=== PATIENT | female | born 1990 | race Caucasian/White ===

== ENCOUNTER 2020-06-23 00:05 | Emergency (ER) | payer MEDICAID ==
[~2020-06-23] VITALS: Ht 170.2 cm; Wt 47.0 kg
[2020-06-23 01:29] LABS: CLARITY,URINE CLEAR (Clear); COLOR,URINE YELLOW (Yellow); GLUCOSE, URINE NEGATIVE (Neg); KETONES,URINE NEGATIVE (Neg); LEUKOCYTE ESTERASE ,URINE TRACE (Neg); NITRITES, URINE NEGATIVE (Neg); OCCULT BLOOD,URINE SMALL (Neg); PROTEIN,URINE NEGATIVE (Neg); UROBILINOGEN,URINE 0.2 E.U/dL (0.2-1.0)
[2020-06-23 01:30] LABS: URINE HCG NEGATIVE (NEG)
[2020-06-23 01:43] LABS: UA COLLECTION TYPE CLN CATCH MIDSTREAM
[2020-06-23 01:44] LABS: BACTERIA,URINE NONE SEEN /HPF (Neg); RBC,URINE 0-2 /HPF (0-2); SQUAMOUS EPITHELIAL CELL,UR FEW /LPF (FEW); WBC,URINE 0-4 /HPF (0-4)
--- NOTE | 2020-06-23 03:50 | NUR ---
DR CONWAY IS PLACING PT ON 179.
[2020-06-23] MEDS ORDERED: MIDAZolam 5mg/ml 2ml vial IM ONE (04:00)
--- NOTE | 2020-06-23 04:00 | NUR ---
PT BECAME VERY AGITATED WHEN MD NOTIFIED PT OF 1798. MD ORDERED IM VERSED IF NEEDED. PT EVENTUALY CALMED DOWN. NO NEED TO ADMIN MEDICATION.
[2020-06-23 04:07] LABS: URINE AMPHETAMINE SCREEN NEGATIVE (Neg); URINE BARBITUATE SCREEN NEGATIVE (Neg); URINE BENZODIAZEPINES SCREEN NEGATIVE (Neg); URINE CANNABINOID SCREEN POSITIVE (Neg); URINE COCAINE SCREEN NEGATIVE (Neg); URINE METHADONE SCREEN NEGATIVE (Neg); URINE OPIATE SCREEN NEGATIVE (Neg); URINE PHENCYCLIDINE SCREEN NEGATIVE (Neg)
[2020-06-23] MEDS ORDERED: NO HOME MEDS (04:30)
[2020-06-23 04:37] LABS: BASOPHILS # (AUTO) 0.1 X10'3 (0-0.2); BASOPHILS % (AUTO) 0.6 % (0-1); EOSINOPHILS # (AUTO) 0.1 X10'3 (0-0.9); HEMATOCRIT 45.6 % (35.0-45.0); HEMOGLOBIN 15.6 g/dl (12.0-16.0); LYMPHOCYTES # (AUTO) 3.2 X10'3 (1.1-4.8); LYMPHOCYTES % (AUTO) 37.9 % (21-51); MEAN CORPUSCULAR HEMOGLOBIN 35.8 PG (27.0-31.0); MEAN CORPUSCULAR HGB CONC 34.1 g/dL (33.0-36.5); MEAN CORPUSCULAR VOLUME 104.9 FL (78-98); MEAN PLATELET VOLUME 7.3 FL (7.4-10.4); MONOCYTES # (AUTO) 0.9 X10'3 (0-0.9); MONOCYTES % (AUTO) 11.2 % (2-12); NEUTROPHILS # (AUTO) 4.1 X10'3 (1.8-7.7); NEUTROPHILS % (AUTO) 49.3 % (42-75); PLATELET COUNT 280 X10'3 (140-440); RED BLOOD COUNT 4.35 X10'6 (4.20-5.60); RED CELL DISTRIBUTION WIDTH 12.8 % (11.5-14.5); WHITE BLOOD COUNT 8.4 X10'3 (4.5-11.0)
[2020-06-23 04:49] LABS: ALANINE AMINOTRANSFERASE 18 U/L (12-78); ALBUMIN 4.1 G/DL (3.4-5.0); ALBUMIN/GLOBULIN RATIO 1.2 (1.1-1.5); ALKALINE PHOSPHATASE 89 IU/L (46-116); ANION GAP 11 (8-16); ASPARTATE AMINO TRANSFERASE 18 U/L (10-37); BILIRUBIN,TOTAL 0.3 MG/DL (0.1-1.0); BLOOD UREA NITROGEN 8 MG/DL (7-18); BUN/CREATININE RATIO 12.9 (6.6-38.0); CALCIUM 8.6 MG/DL (8.5-10.1); CHLORIDE 107 MMOL/L (99-107); CREATININE 0.62 MG/DL (0.40-0.90); GLUCOSE 102 MG/DL (70-104); POTASSIUM 3.6 MMOL/L (3.5-5.1); SODIUM 143 MMOL/L (135-145); TOTAL CARBON DIOXIDE 24.6 MMOL/L (24-32); TOTAL PROTEIN 7.5 G/DL (6.4-8.2); eGFR > 90 ML/MIN
[2020-06-23 04:58] LABS: ETHANOL 0.181 GM/DL (0.0-0.010)
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
--- NOTE | 2020-06-23 08:19 | NUR ---
TC FROM PATIENT'S MOTHER. PATIENT LIVES WITH HER MOTHER. INFORMED THAT MENTAL HEALTH EVAL WILL BE DONE THIS MORNING BY [facility]. MOTHER IS AVAILABLE TO SPEAK WITH MENTAL HEALTH WORKER, IF MORE INFORMATION IS NEEDED.
--- NOTE | 2020-06-23 09:12 | NUR ---
PT OFFERED BREAKFAST TRAY AND IS REFUSING AT THIS TIME.
--- NOTE | 2020-06-23 09:24 | NUR ---
REPORT TO NOE GONZALEZ AND TAKEN TO ER OVERFLOW FOR MH HOLD.
[2020-06-23 10:44] VITALS: BP 125/91
== END 2020-06-23 13:06 | disposition home or self-care (01) ==
LOC: ER 00:06
DX: F41.9 Anxiety disorder, unspecified (principal); F10.10 Alcohol abuse, uncomplicated; H55.00 Unspecified nystagmus; F12.90 Cannabis use, unspecified, uncomplicated; Y90.9 Presence of alcohol in blood, level not specified
CPT/HCPCS: 36415; 80053; 80305; 80320; 81001; 81025; 84443; 85025; 87088; 99283

== ENCOUNTER 2021-02-28 20:18 | Emergency (ER) | payer MEDICAID ==
[~2021-02-28] VITALS: Ht 165.1 cm; Wt 54.0 kg
[~2021-02-28 20:18] MED LIST: NO HOME MEDS
[2021-02-28 21:07] LABS: URINE HCG NEGATIVE (NEG)
[2021-02-28 21:07] LABS: BASOPHILS # (AUTO) 0.1 X10'3 (0-0.2); BASOPHILS % (AUTO) 0.8 % (0-1); EOSINOPHILS # (AUTO) 0.1 X10'3 (0-0.9); EOSINOPHILS % (AUTO) 1.2 % (0-6); HEMATOCRIT 45.2 % (35.0-45.0); HEMOGLOBIN 15.1 g/dl (12.0-16.0); LYMPHOCYTES # (AUTO) 3.8 X10'3 (1.1-4.8); LYMPHOCYTES % (AUTO) 34.5 % (21-51); MEAN CORPUSCULAR HEMOGLOBIN 33.6 PG (27.0-31.0); MEAN CORPUSCULAR HGB CONC 33.4 g/dL (33.0-36.5); MEAN CORPUSCULAR VOLUME 100.6 FL (78-98); MEAN PLATELET VOLUME 8.1 FL (7.4-10.4); MONOCYTES % (AUTO) 9.3 % (2-12); NEUTROPHILS # (AUTO) 5.9 X10'3 (1.8-7.7); NEUTROPHILS % (AUTO) 54.2 % (42-75); PLATELET COUNT 376 X10'3 (140-440); RED BLOOD COUNT 4.49 X10'6 (4.20-5.60); RED CELL DISTRIBUTION WIDTH 13.2 % (11.5-14.5)
--- NOTE | 2021-02-28 21:12 | NUR ---
Pt urinated all over the floor
[2021-02-28 21:24] LABS: ALANINE AMINOTRANSFERASE 20 U/L (12-78); ALBUMIN 4.1 G/DL (3.4-5.0); ALBUMIN/GLOBULIN RATIO 1.1 (1.1-1.5); ALKALINE PHOSPHATASE 95 IU/L (46-116); ANION GAP 19 (8-16); ASPARTATE AMINO TRANSFERASE 26 U/L (10-37); BILIRUBIN,TOTAL 0.3 MG/DL (0.1-1.0); BLOOD UREA NITROGEN 10 MG/DL (7-18); BUN/CREATININE RATIO 11.1 (6.6-38.0); CALCIUM 8.6 MG/DL (8.5-10.1); CHLORIDE 106 MMOL/L (99-107); GLUCOSE 68 MG/DL (70-104); SODIUM 144 MMOL/L (135-145); TOTAL CARBON DIOXIDE 19.2 MMOL/L (24-32); TOTAL PROTEIN 7.7 G/DL (6.4-8.2); eGFR 75 ML/MIN
[2021-02-28 21:25] LABS: ETHANOL 0.328 GM/DL (0.0-0.010)
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
[2021-02-28 21:29] LABS: URINE AMPHETAMINE SCREEN NEGATIVE (Neg); URINE BARBITUATE SCREEN NEGATIVE (Neg); URINE BENZODIAZEPINES SCREEN NEGATIVE (Neg); URINE CANNABINOID SCREEN POSITIVE (Neg); URINE COCAINE SCREEN NEGATIVE (Neg); URINE METHADONE SCREEN NEGATIVE (Neg); URINE OPIATE SCREEN NEGATIVE (Neg); URINE PHENCYCLIDINE SCREEN NEGATIVE (Neg)
--- NOTE | 2021-02-28 21:32 | NUR ---
Pt [facility] Jennifer,
[2021-02-28] MEDS ORDERED: haloperidol lactate 5mg/ml inj IM ONE (21:45)
[2021-02-28] MEDS ORDERED: diphenhydrAMINE 50 mg/ml inj IM ONE (21:45)
[2021-02-28] MEDS ORDERED: LORazepam 2 mg/ml vial IM ONE (21:45)
[2021-02-28] MEDS ORDERED: LORazepam 2 mg/ml vial ONE (21:46)
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
--- NOTE | 2021-02-28 22:06 | NUR ---
PT BEGAN YELLING AND CURSING AT STAFF. PT CONTINUING TO BE AGITATED TOWARD STAFF. PT MEDICATED. DR. YANG CONSENTS AND STATES VAGINAL EXAM WILL WAIT.
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
[2021-02-28] MEDS ORDERED: potassium Cl 20 mEq SR tablet PO STA (22:58)
--- NOTE | 2021-02-28 23:15 | NUR ---
PT NOW SLEEPING, RR 16 EVEN AND UNLABORED.
--- NOTE | 2021-02-28 23:32 | NUR ---
Patient to bed 20 in the ER overflow. She was sedated. She received po KCL. She is on a monitor
--- NOTE | 2021-02-28 23:51 | NUR ---
HR 71, BP 101/63 02 sats 96% RA
[2021-03-01] MEDS ORDERED: normal saline 1000ML IV soln IVB ONE (00:10)
--- NOTE | 2021-03-01 00:31 | NUR ---
MD made aware of BP 77/46 and HR 84. IV started right AC and fluid bolus started.
--- NOTE | 2021-03-01 02:03 | NUR ---
The patient appears to be sleeping
--- NOTE | 2021-03-01 03:56 | NUR ---
The patient appears to be sleeping
[2021-03-01 05:21] VITALS: BP 99/62
--- NOTE | 2021-03-01 06:30 | NUR ---
rcvd report, pt is restlessly asleep, non labored breathing observed, no needs at this time
--- NOTE | 2021-03-01 07:30 | NUR ---
pt is sleeping on her right side, regular breathing observed, no needs at this time
--- NOTE | 2021-03-01 08:30 | NUR ---
[facility], tried to eval pt, she is wanting to eat breakfast and wake up prior to talking to him, pt is sitting up in bed, eating breakfast now
--- NOTE | 2021-03-01 09:35 | NUR ---
LOTUS Atkins is speaking to pt re treatment options, she is crying and upset.
--- NOTE | 2021-03-01 09:49 | NUR ---
pt tearful, she is to contact alcohol rehab, while here and check into there from here
--- NOTE | 2021-03-01 09:59 | NUR ---
contacted detox at [facility] , pt is on the phone with them setting up detox admit, they are saying no beds avail for 2 weeks, but likely sooner as people do not show up
--- NOTE | 2021-03-01 10:12 | NUR ---
pt half heartedly got on the phone with [facility], when they placed her on hold she left the call, did not write down any information from them
--- NOTE | 2021-03-01 10:44 | NUR ---
pt is on the phone with [facility], working through admission process, calm, no needs at this time
--- NOTE | 2021-03-01 11:34 | NUR ---
pt is supine in bed, eyes closed, regular breathing present, no needs at this time
--- NOTE | 2021-03-01 12:37 | NUR ---
pt is sitting up in bed talking with registration, calm, no needs at this time
--- NOTE | 2021-03-01 13:33 | NUR ---
pt is asleep, regular breathing observed, no needs at this time
[2021-03-01] MEDS ORDERED: albuterol 2.5 MG/3 ML nebule NEB ONE (14:40)
--- NOTE | 2021-03-01 14:42 | NUR ---
pt seen by Dr Peralta, he ordered neb treatment, sent page to RT
--- NOTE | 2021-03-01 15:42 | NUR ---
pt has called [facility] in [place] to set up rehab, FRANCO Atkins will call mom and let her know and find out if this works for her as a safety plan, pt calm, no needs at this time
== END 2021-03-01 17:35 | disposition home or self-care (01) ==
LOC: ER 20:19
DX: F10.129 Alcohol abuse with intoxication, unspecified (principal); E87.6 Hypokalemia; F41.9 Anxiety disorder, unspecified; F32.9 Major depressive disorder, single episode, unspecified; F17.200 Nicotine dependence, unspecified, uncomplicated; F12.90 Cannabis use, unspecified, uncomplicated; Z72.89 Other problems related to lifestyle; Y90.0 Blood alcohol level of less than 20 mg/100 ml
CPT/HCPCS: 36415; 72170; 80053; 80305; 80320; 81025; 85025; 94640; 96372; 99285; J1200; J1630; J2060; J7030; 94760

== ENCOUNTER 2021-03-24 08:16 | Emergency (ER) | payer MEDICAID ==
[~2021-03-24] VITALS: Ht 165.1 cm; Wt 55.1 kg
[2021-03-24 08:18] VITALS: BP 104/59
== END 2021-03-24 09:50 | disposition home or self-care (01) ==
LOC: ER 08:16
DX: S93.402A Sprain of unspecified ligament of left ankle, initial encounter (principal); M25.572 Pain in left ankle and joints of left foot; F41.9 Anxiety disorder, unspecified; F32.9 Major depressive disorder, single episode, unspecified; F17.200 Nicotine dependence, unspecified, uncomplicated; F12.90 Cannabis use, unspecified, uncomplicated; Z72.89 Other problems related to lifestyle; Y93.01 Activity, walking, marching and hiking; Y93.89 Activity, other specified; Y92.89 Other specified places as the place of occurrence of the external cause; Y99.8 Other external cause status
CPT/HCPCS: 73610; 99283

== ENCOUNTER 2021-04-03 00:42 | Emergency (ER) | payer MEDICAID ==
[~2021-04-03] VITALS: Ht 167.6 cm; Wt 54.4 kg
[2021-04-03] MEDS ORDERED: naproxen 500mg tablet PO ONE (01:50)
[2021-04-03] MEDS ORDERED: NAPR-56 PO (02:06)
[2021-04-03] MEDS ORDERED: HYDROcodone/acetaminophen 5mg/325mg tablet PO ONE (02:10)
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
--- NOTE | 2021-04-03 03:25 | NUR ---
PT NOT ABLE TO GET [facility] OF [facility].
[2021-04-03 03:31] VITALS: BP 104/75
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
--- NOTE | 2021-04-03 03:40 | NUR ---
RN STATES THAT HE CANNOT FIND THE DC PATIENT.
--- NOTE | 2021-04-03 03:54 | NUR ---
I CALLED THE MOTHER BACK TO TELL HER THAT WE CANNOT FIND HER, THAT WE LOOKED EVERYWHERE OUTSIDE AND ALL OVER. I DID CALL JESI TO FIND HER. MOTHER ALSO INFORMED THAT DYLAN LEFT HER DRIVERS LICENSE BEHIND.
== END 2021-04-03 03:33 | disposition home or self-care (01) ==
LOC: ER 00:42
DX: S62.602A Fracture of unspecified phalanx of right middle finger, initial encounter for closed fracture (principal); S20.219A Contusion of unspecified front wall of thorax, initial encounter; F41.9 Anxiety disorder, unspecified; F32.9 Major depressive disorder, single episode, unspecified; F12.90 Cannabis use, unspecified, uncomplicated; Z72.89 Other problems related to lifestyle; Z79.899 Other long term (current) drug therapy; Y04.8XXA Assault by other bodily force, initial encounter; Y93.89 Activity, other specified; Y92.89 Other specified places as the place of occurrence of the external cause; Y99.8 Other external cause status
CPT/HCPCS: 29130; 73140; 99283

== ENCOUNTER 2021-04-18 23:56 | Emergency (ER) | payer MEDICAID ==
[~2021-04-18] VITALS: Ht 167.6 cm; Wt 50.0 kg
[~2021-04-18 23:56] MED LIST changes: +NAPR-56 PO
[2021-04-19 01:20] VITALS: BP 149/95
== END 2021-04-19 01:21 ==
LOC: ER 23:57
DX: F32.9 Major depressive disorder, single episode, unspecified (principal); F41.9 Anxiety disorder, unspecified; F12.10 Cannabis abuse, uncomplicated; Z02.89 Encounter for other administrative examinations; V98.8XXA Other specified transport accidents, initial encounter; Y93.89 Activity, other specified; Y92.89 Other specified places as the place of occurrence of the external cause; Y99.8 Other external cause status
CPT/HCPCS: 99283

== ENCOUNTER 2021-05-23 14:07 | Emergency (ER) | payer MEDICAID ==
[~2021-05-23] VITALS: Ht 167.6 cm; Wt 117.0 kg
[~2021-05-23 14:07] MED LIST changes: -NAPR-56 PO
[2021-05-23 14:30] VITALS: BP 102/66
[2021-05-23] MEDS ORDERED: AMOX-115 PO (15:24)
== END 2021-05-23 15:30 | disposition home or self-care (01) ==
LOC: ER 14:07
DX: H66.92 Otitis media, unspecified, left ear (principal); F12.90 Cannabis use, unspecified, uncomplicated; F17.200 Nicotine dependence, unspecified, uncomplicated; Z72.89 Other problems related to lifestyle; Z79.2 Long term (current) use of antibiotics; Z86.16 Personal history of COVID-19
CPT/HCPCS: 99283